=== PATIENT | female | born 1980 | race African-American/Black ===

== ENCOUNTER 2018-09-22 05:02 | Emergency (ER) | payer OTHER ==
[~2018-09-22] VITALS: Ht 160 cm; Wt 113.4 kg
[2018-09-22 05:25] VITALS: BP 132/85
--- NOTE | 2018-09-22 05:28 | Emergency Room Report ---
History of Present Illness General Chief Complaint: To Be Triaged Source: Patient Present Illness HPI Patient presents after a syncopal episode at work Apparently the patient and she had the episode earlier last evening Patient was taken to a another facility [facility] at approximately that time 10 PM patient reports that she was at that facility until now when the patient feels that she was not being seen appropriately presents here by private auto Patient reports that prior to the syncopal episode she was having some lightheadedness she felt that she might possibly be hungry and therefore had some b[place] fries however continued to have the lightheadedness and the next thing she recalls is waking up in her bosses lap Patient reported a headache after the syncope and feels that there was likely some trauma as well At this time complains of general weakness She felt that her blood pressure previously had also increased Denies any neuropathy denies any chest pain Allergies: Coded Allergies: METRONIDAZOLE (Verified Allergy, Unknown, 09/22/18) SULFAMETHOXAZOLE (Verified Allergy, Unknown, 09/22/18) TRIMETHOPRIM (Verified Allergy, Unknown, 09/22/18) Patient History Past Medical History: see triage record Pertinent Family History: none Reviewed Nursing Documentation: PMH: Agreed; PSxH: Agreed Review of Systems All Other Systems: negative except mentioned in HPI Physical Exam 99% on room air Sp02 EP Interpretation: reviewed, normal General Appearance: no apparent distress Head: normocephalic, atraumatic Eyes: bilateral eye PERRL, bilateral eye EOMI ENT: hearing grossly normal, normal pharynx Neck: full range of motion, supple Respiratory: lungs clear, normal breath sounds Cardiovascular #1: regular rate, rhythm Gastrointestinal: non tender, soft, no mass Genitourinary: no CVA tenderness Musculoskeletal: normal inspection, back normal Neurologic: alert, oriented x3, responsive Skin: normal color, no rash Lymphatic: no adenopathy Medical Decision Making Diagnostic Impression: Primary Impression: Syncope ER Course Patient is a fairly complex patient with multiple differential to consideration including but not limited to cardiac cardiopulmonary and vascular emergencies Patient's blood work is appropriate urine sample shows fairly significant contaminated sample patient also reports that she was not able to wipe before taking the sample We will wait for culture for further antibiotic coverage Patient also requesting thyroid medication however is not able to provide the name or dosing of the medication She was encouraged to follow with her pharmacy and obtain the actual name and dosing Otherwise patient remains hemodynamically stable at this time stable for close outpatient follow-up Labs Test 09/22/18 05:45 White Blood Count 7.4 K/UL (4.8-10.8) Red Blood Count 4.37 M/UL (4.20-5.40) Hemoglobin 11.6 G/DL (12.0-16.0) Hematocrit 36.3 % (37.0-47.0) Mean Corpuscular Volume 83 FL (80-99) Mean Corpuscular Hemoglobin 26.6 PG (27.0-31.0) Mean Corpuscular Hemoglobin Concent 32.0 G/DL (32.0-36.0) Red Cell Distribution Width 12.7 % (11.6-14.8) Platelet Count 372 K/UL (150-450) Mean Platelet Volume 8.7 FL (6.5-10.1) Neutrophils (%) (Auto) 63.8 % (45.0-75.0) Lymphocytes (%) (Auto) 24.8 % (20.0-45.0) Monocytes (%) (Auto) 8.0 % (1.0-10.0) Eosinophils (%) (Auto) 2.3 % (0.0-3.0) Basophils (%) (Auto) 1.1 % (0.0-2.0) Urine Color Yellow Urine Appearance Slightly cloudy Urine pH 5 (4.5-8.0) Urine Specific Transfer 1.030 (1.005-1.035) Urine Protein 2+ (NEGATIVE) Urine Glucose (UA) Negative (NEGATIVE) Urine Ketones 3+ (NEGATIVE) Urine Blood 4+ (NEGATIVE) Urine Nitrite Negative (NEGATIVE) Urine Bilirubin Negative (NEGATIVE) Urine Urobilinogen 1 MG/DL (0.0-1.0) Urine Leukocyte Esterase 1+ (NEGATIVE) Urine RBC 10-15 /HPF (0 - 2) Urine WBC 10-15 /HPF (0 - 2) Urine Squamous Epithelial Cells Many /LPF (NONE/OCC) Urine Calcium Oxalate Crystals Few /LPF (NONE) Urine Bacteria Moderate /HPF (NONE) Urine Yeast Few /HPF (NONE) Urine HCG, Qualitative Negative (NEGATIVE) Sodium Level 141 MMOL/L (136-145) Potassium Level 3.7 MMOL/L (3.5-5.1) Chloride Level 106 MMOL/L (98-107) Carbon Dioxide Level 25 MMOL/L (21-32) Anion Gap 10 mmol/L (5-15) Blood Urea Nitrogen 8 mg/dL (7-18) Creatinine 1.1 MG/DL (0.55-1.30) Estimat Glomerular Filtration Rate > 60 mL/min (>60) Glucose Level 104 MG/DL (74-106) Calcium Level 8.9 MG/DL (8.5-10.1) Total Bilirubin 0.6 MG/DL (0.2-1.0) Aspartate Amino Transf (AST/SGOT) 31 U/L (15-37) Alanine Aminotransferase (ALT/SGPT) 30 U/L (12-78) Alkaline Phosphatase 66 U/L (46-116) Total Creatine Kinase 720 U/L (26-308) Creatine Kinase MB 4.3 NG/ML (0.0-3.6) Creatine Kinase MB Relative Index 0.5 Troponin I 0.000 ng/mL (0.000-0.056) Total Protein 7.6 G/DL (6.4-8.2) Albumin 3.8 G/DL (3.4-5.0) Globulin 3.8 g/dL Albumin/Globulin Ratio 1.0 (1.0-2.7) Urine Opiates Screen Negative (NEGATIVE) Urine Barbiturates Screen Negative (NEGATIVE) Phencyclidine (PCP) Screen Negative (NEGATIVE) Urine Amphetamines Screen Negative (NEGATIVE) Urine Benzodiazepines Screen Negative (NEGATIVE) Urine Cocaine Screen Negative (NEGATIVE) Urine Marijuana (THC) Screen Positive (NEGATIVE) EKG Diagnostic Results Rate: normal Rhythm: NSR ST Segments: no acute changes Rhythm Strip Diag. Results EP Interpretation: yes Rate: 77 Rhythm: NSR, no PVC's, no ectopy CT/MRI/US Diagnostic Results CT/MRI/US Diagnostic Results : Impression CT head no acute disease Status: improved Disposition: HOME, SELF-CARE Condition: Improved Scripts Dextromethorphan Hb/Doxylamine (ROBITUSSIN NIGHTTIME COUGH DM) 237 Ml Liquid 10 ML PO QHS for 7 Days, ML Prov: Brina Bueno DO 09/22/18 Labetalol HCl (Labetalol HCl) 100 Mg Tablet 100 MG ORAL DAILY, #20 TAB Prov: Brina Bueno DO 09/22/18 Acetaminophen (Tylenol) 325 Mg Tablet 650 MG ORAL Q8HR PRN for Prn Pain/Headache/Temp > 101, #20 TAB 0 Refills Prov: Brina Bueno DO 09/22/18 Ondansetron (Zofran) 4 Mg Tablet 4 MG ORAL Q8HR PRN for Nausea & Vomiting, #12 TAB Prov: Brina Bueno DO 09/22/18 Referrals: [facility],REFERR[facility] (PCP) Additional Instructions: Patient is provided with the discharge instructions notified to follow up with primary doctor in the next 2-3 days otherwise return to the er with any worsening symptoms. Please note that this report is being documented using [employer] technology. This can lead to erroneous entry secondary to incorrect interpretation by the dictating instrument. Brina Bueno DO Sep 22, 2018 05:28
[2018-09-22] MEDS ORDERED: Sodium Chloride 500ML 500 ML IV ONE (06:00)
--- NOTE | 2018-09-22 06:07 | Diagnostic Imaging Report ---
EXAM: CT Head Without Intravenous Contrast CLINICAL HISTORY: TRAUMA TECHNIQUE: Axial computed tomography images of the head/brain without intravenous contrast. CTDI is 70.38 mGy and DLP is 1326 mGy-cm. One or more of the following dose reduction techniques were used: automated exposure control, adjustment of the mA and/or kV according to patient size, use of iterative reconstruction technique. COMPARISON: None FINDINGS: Brain: No mass effect. No hemorrhage. No significant white matter disease. Ventricles: Unremarkable. No ventriculomegaly. Bones/joints: Unremarkable. No acute fracture. Soft tissues: Unremarkable. Sinuses: Unremarkable as visualized. No acute sinusitis. Mastoid air cells: Unremarkable as visualized. No mastoid effusion. Other findings: IMPRESSION: No acute intracranial abnormality.
[2018-09-22 06:11] LABS: BASOPHILS % (AUTO) 1.1 % (0.0-2.0); EOSINOPHILS % (AUTO) 2.3 % (0.0-3.0); HEMATOCRIT 36.3 % (37.0-47.0); HEMOGLOBIN 11.6 G/DL (12.0-16.0); LYMPHOCYTES % (AUTO) 24.8 % (20.0-45.0); MEAN CORPUSCULAR VOLUME 83 FL (80-99); NEUTROPHILS % (AUTO) 63.8 % (45.0-75.0); PLATELET COUNT 372 K/UL (150-450); RED BLOOD COUNT 4.37 M/UL (4.20-5.40); RED CELL DISTRIBUTION WIDTH 12.7 % (11.6-14.8); WHITE BLOOD COUNT 7.4 K/UL (4.8-10.8)
[2018-09-22 06:16] LABS: BILIRUBIN, URINE NEGATIVE (NEGATIVE); GLUCOSE, URINE (UA) NEGATIVE (NEGATIVE); KETONES,URINE 3+ (NEGATIVE); LEUKOCYTE ESTERASE ,URINE 1+ (NEGATIVE); NITRITE,URINE NEGATIVE (NEGATIVE); PH,URINE 5 (4.5-8.0); PROTEIN,URINE 2+ (NEGATIVE); UROBILINOGEN,URINE 1 MG/DL (0.0-1.0)
[2018-09-22] MEDS ORDERED: TYLENOL325 MG ORAL (06:17)
[2018-09-22] MEDS ORDERED: ZOFRAN4 M1 ORAL (06:17)
[2018-09-22 06:20] LABS: ANION GAP 10 mmol/L (5-15); BLOOD UREA NITROGEN 8 mg/dL (7-18); CALCIUM 8.9 MG/DL (8.5-10.1); CARBON DIOXIDE 25 MMOL/L (21-32); CHLORIDE 106 MMOL/L (98-107); CREATININE 1.1 MG/DL (0.55-1.30); POTASSIUM 3.7 MMOL/L (3.5-5.1); SODIUM 141 MMOL/L (136-145)
[2018-09-22 06:33] LABS: ALANINE AMINOTRANSFERASE 30 U/L (12-78); ALBUMIN 3.8 G/DL (3.4-5.0); ALKALINE PHOSPHATASE 66 U/L (46-116); APPEARANCE,URINE SLIGHTLY CLOUDY; ASPARTATE AMINO TRANSFERASE 31 U/L (15-37); BILIRUBIN,TOTAL 0.6 MG/DL (0.2-1.0); CKMB 4.3 NG/ML (0.0-3.6); COLOR,URINE YELLOW; CREATINE KINASE 720 U/L (26-308)
[2018-09-22 06:35] VITALS: BP 133/81
[2018-09-22] MEDS ORDERED: NORMODYNE100 MG ORAL (06:35)
[2018-09-22] MEDS ORDERED: ROBITUSSIN NIG237 ML PO (06:35)
== END 2018-09-22 06:35 | disposition home or self-care (01) ==
LOC: EMR 05:10
DX: R55 Syncope and collapse (principal)
CPT/HCPCS: 36415; 70450; 80053; 80307; 81003; 81025; 82550; 82553; 84484; 85025; 87086; 93005; 96374; 99284; J2405

== ENCOUNTER 2019-03-22 21:19 | Emergency (ER) | payer OTHER ==
[~2019-03-22] VITALS: Ht 157.5 cm; Wt 72.6 kg
[~2019-03-22 21:19] MED LIST: CEPHALEXIN500 MG ORAL; NORMODYNE100 MG ORAL; NORVASC5 MG ORAL; PHENAZOPYRIDIN200 MG ORAL; ROBITUSSIN NIG237 ML PO; SYNTHROID137 MCG ORAL; TYLENOL325 MG ORAL; ZOFRAN4 M1 ORAL; blood pressure med
[2019-03-22 21:41] VITALS: BP 127/84
--- NOTE | 2019-03-22 21:43 | NUR ---
ED Nurse Note: Patient walked in to ER c/o vaginal d/c couple of days now, and pain 10/10 of lower abdomen. AAO x4, VSS at this time, skin is dry, intact. Boyfriend at the bed side.
--- NOTE | 2019-03-22 21:46 | Emergency Room Report ---
History of Present Illness General Chief Complaint: Vaginal Source: Patient Present Illness HPI Is a 38-year-old female with history of high blood pressure. She presents with chief complaint of suprapubic pain. Onset yesterday. No nausea no vomiting. No dysuria frequency. No discharge. Pain is sharp and crampy in nature. Denies any other complaint. She also wanted to be tested for all STDs. Allergies: Coded Allergies: METRONIDAZOLE (Verified Allergy, Unknown, 09/22/18) SULFAMETHOXAZOLE (Verified Allergy, Unknown, 09/22/18) TRIMETHOPRIM (Verified Allergy, Unknown, 09/22/18) Patient History Past Medical History: see triage record, old chart reviewed, HTN Past Surgical History: other Pertinent Family History: none Social History: Denies: smoking Last Menstrual Period: 03/17 Now: No - unk : 3 Para: 2 Immunizations: other Reviewed Nursing Documentation: PMH: Agreed; PSxH: Agreed Nursing Documentation-PMH Hx Hypertension: Yes Hx Pacemaker: No - hypothyroid Review of Systems Eye: Denies: eye pain, blurred vision ENT: Denies: ear pain, nose congestion, throat swelling Respiratory: Denies: cough, shortness of breath Cardiovascular: Denies: chest pain, palpitations Gastrointestinal: Denies: abdominal pain, diarrhea, nausea, vomiting Genitourinary: Reports: pain Musculoskeletal: Denies: back pain, joint pain Skin: Denies: rash Neurological: Denies: headache, numbness Endocrine: Denies: increased thirst, increased urine Hematologic/Lymphatic: Denies: easy bruising All Other Systems: negative except mentioned in HPI Physical Exam Vital Signs Date Time Temp Pulse Resp B/P (MAP) Pulse Ox O2 Delivery O2 Flow Rate FiO2 03/22/19 21:21 98.2 95 18 127/84 93 Room Air vitals unremarkable Sp02 EP Interpretation: reviewed, normal General Appearance: well appearing, no apparent distress, alert Head: normocephalic, atraumatic Eyes: bilateral eye PERRL, bilateral eye EOMI ENT: hearing grossly normal, normal pharynx Neck: full range of motion, supple, no meningismus Respiratory: chest non-tender, lungs clear, normal breath sounds Cardiovascular #1: regular rate, rhythm, no murmur Gastrointestinal: normal bowel sounds, no mass, no organomegaly, no bruit, non- distended, tenderness - suprapubic Musculoskeletal: back normal, gait/station normal, normal range of motion Psychiatric: mood/affect normal Skin: warm/dry Medical Decision Making Diagnostic Impression: Primary Impression: Pelvic pain Additional Impression: Pain due to dental caries ER Course Patient with suprapubic pain. No evidence of any acute abdomen patient is resting comfortably. No evidence of any UTI. Told patient she can get outpatient STD testing done. I see no emergent need to do testing here. On discharge she asked for antibiotics for dental pain. She said his been going on for a week. Is localized to the left upper first molar. She has dental caries and dental decay. Last Vital Signs Date Time Temp Pulse Resp B/P (MAP) Pulse Ox O2 Delivery O2 Flow Rate FiO2 03/22/19 21:41 98.2 18 127/84 93 Room Air 03/22/19 21:21 95 Status: improved Disposition: HOME, SELF-CARE Condition: Stable Scripts Ibuprofen* (MOTRIN*) 600 Mg Tablet 600 MG ORAL THREE TIMES A DAY, #30 TAB 0 Refills Prov: Michael Noriega MD 03/22/19 Amoxicillin/Potassium Clav 875-125* (AUGMENTIN 875-125 TABLET*) 1 Each Tablet 1 TAB ORAL TWICE A DAY, #14 TAB Prov: Michael Noriega MD 03/22/19 Additional Instructions: Follow-up with your DrGallo in 3-5 days if not better. Recommend outpatient testing for HIV, hepatitis, syphilis and other STDs. Return if symptom worsen. Michael Noriega MD Mar 22, 2019 21:46
[2019-03-22 22:06] LABS: APPEARANCE,URINE SLIGHTLY CLOUDY; BILIRUBIN, URINE NEGATIVE (NEGATIVE); GLUCOSE, URINE (UA) NEGATIVE (NEGATIVE); KETONES,URINE NEGATIVE (NEGATIVE); LEUKOCYTE ESTERASE ,URINE 1+ (NEGATIVE); NITRITE,URINE NEGATIVE (NEGATIVE); PH,URINE 6 (4.5-8.0); PROTEIN,URINE NEGATIVE (NEGATIVE); UROBILINOGEN,URINE NORMAL MG/DL (0.0-1.0)
[2019-03-22 22:09] LABS: COLOR,URINE YELLOW
[2019-03-22] MEDS ORDERED: AUGMENTIN 875-1 EAC1 ORAL (22:27)
[2019-03-22] MEDS ORDERED: IBUPROFEN600 MG ORAL (22:27)
[2019-03-22 22:35] VITALS: BP 127/84
--- NOTE | 2019-03-22 22:37 | NUR ---
ED Nurse Note: Pt cleared by health care Provider for discharge. DC instructions/prescription was given and explained to pt and verbalized understanding of teachings. All medical deviecs such as ID band removed. Pt is AAO x4, ambulatory and left with all personal belongings.
== END 2019-03-22 23:00 | disposition home or self-care (01) ==
LOC: EMR 22:50
DX: R10.2 Pelvic and perineal pain (principal); K02.9 Dental caries, unspecified; Z88.2 Allergy status to sulfonamides; Z88.1 Allergy status to other antibiotic agents
CPT/HCPCS: 81003; 81025; 99283